=== PATIENT | female | born 1980 | race Two or more races ===

== ENCOUNTER 2017-09-16 18:04 | Emergency (ER) | payer SELFPAY ==
[2017-09-16 18:15] VITALS: RESP 16
--- NOTE | 2017-09-16 18:17 | CPEKG ---
Heart Rate: 69 RR Interval: 870 P-R Interval: 152 QRSD Interval: 92 QT Interval: 416 QTC Interval: 446 P [place]: 58 QRS [place]: 78 T Wave [place]: 49 EKG Severity - NORMAL ECG - EKG Impression: SINUS RHYTHM Electronically Signed By: Micki Phan 16-Sep-2017 20:41:00
--- NOTE | 2017-09-16 18:38 | EDPHY ---
H & P Time Seen by Provider: 09/16/17 18:18 HPI/ROS: HPI Left-sided facial tingling and weakness. 36-year-old female by private vehicle with her sister. This patient reports that at 2:00 p.m. she noticed that the left side of her face was drooping this included her mouth, upper and lower eyelid and left forehead. She reports that she also had tingling throughout her face and in both hands and both feet after she noticed this. She reports that this left upper and lower facial drooping then gradually got better and resolved fully by about 5 o'clock. At this time she denies any continued symptoms. ROS: Constitutional: No fever, no chills. No weakness. Eyes: No discharge. No changes in vision. Respiratory: No cough. No shortness of breath. Cardiac: No chest pain, no palpitations. Gastrointestinal: No abdominal pain, no vomiting, no diarrhea. Musculoskeletal: No back pain. No neck pain. No myalgias or arthralgias. Skin: No rashes. Neurological: No headache. As above. No other focal weakness or altered sensation. Past medical history: Breast cancer with out metastasis. She has been manage for this at [facility]. Depression, lumpectomy. Social history: Here with her sister. Nonsmoker. No alcohol. Physical Exam: General Appearance: Alert, no distress. This patient is responding to questions appropriately and in full sentences. This patient appears well- hydrated and well-nourished. Eyes: Pupils equal and round no pallor or injection. No lid edema, erythema or injection. No nystagmus. No photophobia. ENT, Mouth: Mucous membranes are moist. The pharyngeal tissues are unremarkable. No edema or swelling. No asymmetry suggestive of abscess. No erythema or exudates. Neurological: Motor sensory function is grossly intact. Cranial nerves are normal. No upper or lower facial motor function asymmetry. No facial sensory deficits. Cerebellar function is intact. Finger to nose and heel to stevens intact. Gait is normal. Skin: Warm and dry, no rashes. Musculoskeletal: Neck is supple and nontender. No pain on flexion of the neck. Extremities are symmetrical. All joints range without pain or impingement. Psychiatric: No agitation. No depression. Database: EKG: EKG time is 616 p.m.; EKG shows a narrow complex normal sinus rhythm with a ventricular rate of 69. The GA, QRS, QT intervals are within normal limits. There are no ST-T wave changes indicative of ischemic or injury pattern. No evidence of right heart strain. Interpreted by me. Imaging: Procedures: Emergency department course: Vital signs reviewed. Her presentation is consistent with a Wellington's palsy/ transient facial nerve neuropathy. EKG obtained and reviewed by myself. On my evaluation she currently has no complaints. I feel she is safe for discharge. I will treat her for Wellington's palsy with valacyclovir as well as prednisone. She received 60 mg of prednisone in the emergency department. I will treat her with this for an additional 4 days. She will also be prescribed valacyclovir on discharge. She feels comfortable going home. I will have her follow up with her primary care physician tomorrow. I carefully reviewed return to emergency department precautions with her. She has full understanding of these instructions. All of her questions were answered. She was discharged home in good condition with her sister. Differential Diagnosis: The differential diagnosis on this patient includes but is not limited to Wellington' s palsy. CVA, MS, Guillain-[place] syndrome with Cerna Caro variant, myasthenia gravis unlikely. This represents a partial list of diagnoses considered. These considerations are based on history, physical exam, past history, reassessment and diagnostic testing. Smoking Status: Light smoker Constitutional: Initial Vital Signs Heart Rate 77 09/16/17 18:11 Respiratory Rate 16 09/16/17 18:11 Blood Pressure 159/108 H 09/16/17 18:11 O2 Sat (%) 95 09/16/17 18:11 O2 Delivery Mode Room Air Allergies/Adverse Reactions: No Known Allergies Allergy (Verified 09/16/17 18:09) Home Medications: Medication Instructions Recorded Antidepressant 09/16/17 Ferrous Sulfate 09/16/17 Valacyclovir HCl [Valtrex] 1,000 mg PO TID #21 tab 09/16/17 predniSONE [prednisone 20mg (RX)] 60 mg PO DAILY #9 tab 09/16/17 Departure - Departure Disposition: Home, Routine, Self-Care Clinical Impression: Wellington's palsy Condition: Good Instructions: [place] Palsy (ED) Additional Instructions: Read and follow provided instructions. Follow-up with your primary care physician tomorrow for re-evaluation. Take medication as prescribed through entire course of treatment. Most important, as discussed, return to the emergency department immediately for return of symptoms, facial weakness or other serious concerns. I want you to go to the main campus of [facility] at [facility] and [facility] in [place]. Referrals: NONE *PRIMARY CARE P,. [Primary Care Provider] - As per Instructions Prescriptions: predniSONE [prednisone 20mg (RX)] 60 mg PO DAILY #9 tab Valacyclovir HCl [Valtrex] 1,000 mg PO TID #21 tab
[2017-09-16] MEDS ORDERED: valACYclovir 500 MG TAB PO ONE (18:40)
[2017-09-16] MEDS ORDERED: predniSONE 20 MG TAB PO ONE (18:40)
[2017-09-16 18:58] VITALS: BP 123/82; PULSE 76; TEMP 98.1; O2SAT 96
== END 2017-09-16 18:56 | disposition home or self-care (01) ==
LOC: CED 18:04
DX: G51.0 Bell's palsy (principal); F17.200 Nicotine dependence, unspecified, uncomplicated; Z85.3 Personal history of malignant neoplasm of breast
CPT/HCPCS: J7512